=== PATIENT | female | born 1960 | race Caucasian/White ===

== ENCOUNTER 2016-09-14 08:24 | Outpatient (CLI) | payer BC | END 2016-09-14 20:43 | disposition home or self-care (01) | LOC: SUS 08:24 | PROVIDERS: ATTEND Obstetrics & Gynecology Gynecology | DX: N64.4 Mastodynia (principal) | CPT/HCPCS: 76641 ==

== ENCOUNTER 2017-01-24 08:00 | Outpatient (CLI) | payer BC | END 2017-01-24 20:51 | disposition home or self-care (01) | LOC: SMA 08:00 | PROVIDERS: ATTEND Obstetrics & Gynecology Gynecology | DX: Z12.31 Encounter for screening mammogram for malignant neoplasm of breast (principal); N64.89 Other specified disorders of breast | CPT/HCPCS: 76641; G0202 ==

== ENCOUNTER 2017-01-25 14:46 | Outpatient (CLI) | payer BC | END 2017-01-25 21:03 | disposition home or self-care (01) | LOC: SRD 14:46 | PROVIDERS: ATTEND Obstetrics & Gynecology Gynecology | DX: R92.2 Inconclusive mammogram (principal) | CPT/HCPCS: G0206 ==

== ENCOUNTER 2017-07-12 07:48 | Outpatient (CLI) | payer BC | END 2017-07-12 19:56 | disposition home or self-care (01) | LOC: SUS 07:48 | PROVIDERS: ATTEND Obstetrics & Gynecology Gynecology | DX: N64.4 Mastodynia (principal) | CPT/HCPCS: 76642 ==

== ENCOUNTER 2017-08-15 08:34 | Outpatient (CLI) | payer BC | END 2017-08-15 20:51 | disposition home or self-care (01) | LOC: SMA 08:34 | PROVIDERS: ATTEND Obstetrics & Gynecology Gynecology | DX: N64.4 Mastodynia (principal) | CPT/HCPCS: 77065 ==

== ENCOUNTER → 2018-01-29 | Outpatient (CLI) | payer BC | END | disposition home or self-care (01) | LOC: SMA 08:15 | PROVIDERS: ATTEND Obstetrics & Gynecology Gynecology | DX: R92.2 Inconclusive mammogram (principal); R92.8 Other abnormal and inconclusive findings on diagnostic imaging of breast | CPT/HCPCS: 76641; 77066 ==

== ENCOUNTER 2019-02-03 07:50 | Outpatient (CLI) | payer BC | END 2019-02-03 20:45 | disposition home or self-care (01) | LOC: SMA 07:50 | PROVIDERS: ATTEND Obstetrics & Gynecology Gynecology | DX: R92.2 Inconclusive mammogram (principal); Z80.3 Family history of malignant neoplasm of breast | CPT/HCPCS: 76641; 77066 ==

== ENCOUNTER 2020-02-04 08:04 | Outpatient (CLI) | payer BC | END 2020-02-04 20:32 | disposition home or self-care (01) | LOC: SMA 08:04 | PROVIDERS: ATTEND Obstetrics & Gynecology Gynecology | DX: R92.2 Inconclusive mammogram (principal); N64.89 Other specified disorders of breast | CPT/HCPCS: 76641; 77066 ==

== ENCOUNTER 2021-03-15 08:40 | Outpatient (CLI) | payer BC | END 2021-03-15 18:55 | disposition home or self-care (01) | LOC: SMA 08:40 | PROVIDERS: ATTEND Obstetrics & Gynecology Gynecology | DX: R92.2 Inconclusive mammogram (principal); N64.89 Other specified disorders of breast | CPT/HCPCS: 76641; 77066 ==

== ENCOUNTER 2022-03-14 07:20 | Outpatient (CLI) | payer BC | END 2022-03-14 21:12 | disposition home or self-care (01) | LOC: SMA 07:20 | PROVIDERS: ATTEND Obstetrics & Gynecology Gynecology | DX: R92.2 Inconclusive mammogram (principal); N64.89 Other specified disorders of breast | CPT/HCPCS: 76641; 77066 ==

== ENCOUNTER 2023-03-16 08:52 | Outpatient (CLI) | payer BC | END 2023-03-16 18:08 | disposition home or self-care (01) | LOC: SMA 08:52 | PROVIDERS: ATTEND Obstetrics & Gynecology Gynecology | DX: Z12.39 Encounter for other screening for malignant neoplasm of breast (principal); R92.30 Dense breasts, unspecified | CPT/HCPCS: 76641; 77067 ==

== ENCOUNTER 2023-03-23 08:10 | Outpatient (CLI) | payer BC | END 2023-03-23 19:22 | disposition home or self-care (01) | LOC: SMA 08:10 | PROVIDERS: ATTEND Obstetrics & Gynecology Gynecology | DX: R92.30 Dense breasts, unspecified (principal); R92.8 Other abnormal and inconclusive findings on diagnostic imaging of breast | CPT/HCPCS: 77065 ==